=== PATIENT | female | born 1940 | race Native Hawaiian/Other Pacific Islander ===

== ENCOUNTER 2021-08-15 19:52 | Emergency (ER) | payer OTHER ==
[~2021-08-15] VITALS: Ht 175.3 cm; Wt 65.3 kg
[2021-08-15 19:52] VITALS: BP 166/96; TEMP 97.6
[2021-08-15 20:15] LABS: PLATELET COUNT 144 K/uL (152-353)
[2021-08-15 20:24] LABS: POTASSIUM 3.8 mmol/L (3.6-5.2)
[2021-08-16] MEDS ORDERED: AMLODIPINE BESYLATE PO (12:02)
[2021-08-16] MEDS ORDERED: DONEPEZIL HYDRO10 MG PO (12:03)
[2021-08-16] MEDS ORDERED: LIPITOR80 MG PO (12:04)
[2021-08-16] MEDS ORDERED: [UNRECOGNIZED DRUG - CODE] PO (12:05)
[2021-08-16] MEDS ORDERED: ZESTRIL40 MG PO (12:06)
[2021-08-16] MEDS ORDERED: MULTIVITAMI1 PO (12:06)
[2021-08-16] MEDS ORDERED: POTASSIUM CHLO20 ME2 PO (12:07)
[2021-08-16] MEDS ORDERED: QUETIAPINE50 MG PO (12:09)
[2021-08-16] MEDS ORDERED: DOK100 MG PO (12:10)
[2021-08-16] MEDS ORDERED: MEMANTINE HYDRO10 MG PO (12:11)
[2021-08-16] MEDS ORDERED: APIX1TAB PO (12:11)
[2021-08-16] MEDS ORDERED: METO50TA27 PO (12:12)
[2021-08-16] MEDS ORDERED: QUETIAPINE25 MG PO (12:13)
[2021-08-16] MEDS ORDERED: HYDR25TA57 PO (12:14)
[2021-08-16] MEDS ORDERED: ALBUTEROL108 MCG/AC INH (12:15)
== END 2021-08-15 21:32 | disposition still patient (30) ==
LOC: ED 19:52
PROVIDERS: Emergency Medicine
DX: F03.91 Unspecified dementia, unspecified severity, with behavioral disturbance (principal); R41.0 Disorientation, unspecified; I48.91 Unspecified atrial fibrillation; Z11.52 Encounter for screening for COVID-19; Z04.6 Encounter for general psychiatric examination, requested by authority
CPT/HCPCS: 36415; 80053; 81000; 85027; 87635; 93005; 99283; U0003